=== PATIENT | female | born 1985 | race Caucasian/White ===

== ENCOUNTER 2019-01-27 20:03 | Emergency (ER) | payer MEDICARE, MEDICAID ==
[2019-01-27] MEDS ORDERED: CLINDAMYCIN 600MG/50ML PREMIX 600 MG/50 ML BAG IVPB ONE (20:14)
--- NOTE | 2019-01-27 20:23 | Emergency Department Record ---
History of Present Illness - General Chief Complaint: Ankle/Foot Injury Stated Complaint: L BIG TOE INFECTED Time Seen by Provider: 01/27/19 20:05 Source: Patient Mode of Arrival: Ambulatory Limitations: No limitations - History of Present Illness Initial Comments: 33 yo female presents to ED for evaluation of worsening pain, discharge from a chronic wound to the left great toe. Patient is currently being followed by a freight rate specialist and PCP (Dr. Witt) at [facility], reports that a wound culture was obtained 5 days ago that came back positive for staph. Patient reports that her symptoms are worsening, that her DM has not been controlled (patient reports non-compliance with her medications), and that she does not want to be go back to [facility] for any further care. MD Complaint: Other Onset/Timin -: Year(s) Injury: Toes: Left Type of Injury: Other Place: Home Severity: Moderate Improves With: Nothing Worsens With: Nothing - Related Data Home Medications Medication Instructions Recorded Confirmed Last Taken Albuterol Sulfate [Ventolin Hfa] 1 puff INH ASDIR 01/27/19 01/27/19 01/27/19 Clonidine HCl 1 tab PO TID 01/27/19 01/27/19 01/27/19 Doxepin HCl 2 tab PO QHS 01/27/19 01/27/19 01/27/19 Escitalopram Oxalate [Lexapro] 20 mg PO DAILY 01/27/19 01/27/19 01/27/19 Gabapentin 900 mg PO QID 01/27/19 01/27/19 01/27/19 Hydrochlorothiazide [Hctz] 1 tab PO DAILY 01/27/19 01/27/19 01/27/19 Lidocaine Visc 2% 15Ml [Lidocaine 1 ml TOP DAILY 01/27/19 01/27/19 01/27/19 HCl Viscous] Metformin HCl [Metformin HCl ER] 2 tab PO BID 01/27/19 01/27/19 01/27/19 Methadone HCl 30 mg PO DAILY 01/27/19 01/27/19 01/27/19 Mupirocin [Bactroban] 1 apply TOP DAILY 01/27/19 01/27/19 01/27/19 Pregabalin 2 tab PO QID 01/27/19 01/27/19 01/27/19 Rivaroxaban [Xarelto] 20 mg PO DAILY 01/27/19 01/27/19 01/27/19 Topiramate [Topiramate ER] 50 mg PO BID 01/27/19 01/27/19 01/27/19 Venlafaxine HCl [Venlafaxine HCl 150 mg PO DAILY 01/27/19 01/27/19 01/27/19 ER] Allergies Allergy/AdvReac Type Severity Reaction Status Date / Time No Known Drug Allergies Allergy Verified 01/27/19 20:11 Review of Systems Constitutional: Denies: Chills, Fever, Malaise, Night sweats Eyes: Denies: Eye discharge, Eye pain ENT: Denies: Congestion, Ear pain, Epistaxis Respiratory: Denies: Cough, Dyspnea Cardiovascular: Denies: Chest pain, Dyspnea on exertion Endocrine: Denies: Fatigue, Heat or cold intolerance Gastrointestinal: Denies: Abdominal pain, Nausea, Vomiting Genitourinary: Denies: Incontinence, Retention Musculoskeletal: Denies: Arthralgia, Back pain Skin: Reports: Other (Wound to the left great toe). Denies: Bruising, Change in color Neurological: Denies: Abnormal gait, Confusion, Headache, Seizure Psychiatric: Denies: Anxiety Hematological/Lymphatic: Denies: Anemia, Blood Clots Physical Exam - General General Appearance: Alert, Oriented x3, Cooperative, Mild distress Limitations: No limitations - Head Head exam: Atraumatic, Normocephalic, Normal inspection Head exam detail: negative: Abrasion, Contusion, Harris's sign, General tenderness, Hematoma, Laceration - Eye Eye exam: Other (Disconjugate gaze on examination). negative: Conjunctival injection, Periorbital swelling, Periorbital tenderness, Scleral icterus - ENT Ear exam: negative: Auricular hematoma, Auricular trauma Nasal Exam: negative: Active bleeding, Discharge, Dried blood, Foreign body Mouth exam: negative: Drooling, Laceration, Muffled voice, Tongue elevation - Neck Neck exam: Normal inspection. negative: Meningismus, Tenderness - Respiratory Respiratory exam: Normal lung sounds bilaterally. negative: Rales, Respiratory distress, Rhonchi, Stridor - Cardiovascular Cardiovascular Exam: Regular rate, Normal rhythm, Normal heart sounds Peripheral Pulses: 3+: Dorsalis Pedis (R), Dorsalis Pedis (L) - GI/Abdominal GI/Abdominal exam: Soft. negative: Rebound, Rigid, Tenderness - Rectal Rectal exam: Deferred - exam: Deferred - Extremities Extremities exam: Other (Chronic skin ulcerations to the lower extremities bilaterally, chronic tissue loss to the left great toe on examination.). negative: Calf tenderness, Pedal edema - Back Back exam: Denies: CVA tenderness (R), CVA tenderness (L) - Neurological Neurological exam: Alert, Normal gait, Oriented X3 - Psychiatric Psychiatric exam: Normal affect, Normal mood - Skin Skin exam: Normal color. negative: Abrasion Type of lesion: negative: abrasion Course Vital Signs 01/27/19 20:10 Temperature 98.4 F Pulse Rate [ 110 H Pulse Ox Probe] Respiratory 24 Rate Blood Pressure 146/73 [Left Arm] Pulse Ox 99 - Reevaluation(s) Reevaluation #1: 01/27/19 20:51 Laboratory studies were reviewed and appear grossly unremarkable for an acute process except for the following: Hgb: 8.1 CRP 3.6 ESR 60 Will initiate transfer for wound-care evaluation at [facility]. 01/27/19 21:24 Case was discussed with Dr. Acuña, will accept transfer for wound car and treatment of acute cellulitis. Zosyn ordered to infuse at this time as well. Medical Decision Making - Lab Data Result diagrams: 01/27/19 19:18 01/27/19 19:18 Disposition Disposition: Transfer Clinical Impression: Diabetic foot ulcer Qualifiers: Diabetic foot ulcer location: toe Diabetes mellitus type: type 2 Laterality: left Non-pressure ulcer stage: with fat layer exposed Qualified Code(s): E11.621 - Type 2 diabetes mellitus with foot ulcer Cellulitis Qualifiers: Site of cellulitis: extremity Site of cellulitis of extremity: toe Laterality: left Qualified Code(s): L03.032 - Cellulitis of left toe Disposition: Acute Care Hospital Transfer Transfer To: [facility] Reason For Transfer: Wound Care evaluation Accepting Physician: Arianne Time Discussed w/Accepting Physician: 21:24 Condition: (2) Stable Forms: Patient Portal Access Time of Disposition: 21:24 Quality - Quality Measures Quality Measures: N/A - Blood Pressure Screening Does Patient Have Any of the Following: Active Dx of HTN Blood Pressure Classification: Hypertensive Reading Systolic Measurement: 146 Diastolic Measurement: 73 Screening for High Blood Pressure: Patient Exclusion, Hx of HTN [[id number]]
[2019-01-27 20:26] LABS: ABSOLUTE NEUTROPHIL COUNT 7.68; HEMATOCRIT 29.7 % (35.0-47.0); HEMOGLOBIN 8.1 gm/dl (11.6-16.0); MEAN CELL VOLUME 80.5 fl (81-97); MEAN CORPUSCULAR HGB CONC 27.3 g/dl (32-36); MEAN PLATELET VOLUME 9.9 fl (7.4-10.4); PLATELET COUNT 526 K/uL (130-400); RED BLOOD COUNT 3.69 M/uL (3.80-5.40); RED CELL DISTRIBUTION WIDTH 24.5 % (11.5-14.5); WHITE BLOOD COUNT W/O DIFF 12.1 K/uL (4.2-12.2)
[2019-01-27 20:30] LABS: MEAN CORPUSCULAR HEMOGLOBIN 21.9 pg (27-33)
[2019-01-27 20:40] LABS: BLOOD UREA NITROGEN 14 mg/dL (6-20); CREATININE 1.1 mg/dL (0.5-0.9); EST GLOMERULAR FILTRATION RATE > 60 mL/min
[2019-01-27 20:41] LABS: PLATELET ESTIMATE INCREASED (NORMAL); TOTAL PROTEIN 8.1 g/dL (6.6-8.7)
[2019-01-27 20:42] LABS: ANISOCYTOSIS 3+; HYPOCHROMIA 2+; POLYCHROMASIA 1+
[2019-01-27 20:43] LABS: GLUCOSE,RANDOM 153 mg/dL (74-109)
[2019-01-27 20:45] LABS: ALT/SGPT 12 U/L (<33)
[2019-01-27 20:46] LABS: ALB/GLOB RATIO 1.2 (1.1-1.8); ALBUMIN 4.4 g/dL (4.0-5.0); ALKALINE PHOSPHATASE 103 U/L (35-104); AST/SGOT 16 U/L (10.0-35.0); C-REACTIVE PROTEIN 3.59 mg/dL (<0.5)
[2019-01-27] MEDS ORDERED: MORPHINE SULFATE 5 MG/ML VIAL IVP ONE (21:02)
[2019-01-27 21:05] LABS: ERYTHROCYTE SEDIMENTATION RATE 60 mm/hr (0-20)
[2019-01-27] MEDS ORDERED: PIPERACILLIN SODIUM/TAZOBACTAM 4.5 GM in 0.9 % SODIUM CHLORIDE 100ML 100 ML IVPB ONE (21:23)
[2019-01-27] MEDS ORDERED: ACETAMINOPHEN 1,000 MG/100 ML BTL IVPB ONE (22:11)
== END 2019-01-27 23:00 | disposition short-term general hospital (02) ==
LOC: ER 20:03
DX: L03.032 Cellulitis of left toe (principal); L97.529 Non-pressure chronic ulcer of other part of left foot with unspecified severity; E11.621 Type 2 diabetes mellitus with foot ulcer; Z79.84 Long term (current) use of oral hypoglycemic drugs; I10 Essential (primary) hypertension
CPT/HCPCS: 80053; 85027; 85651; 86140; 96365; 96375; 99285; J2543